=== PATIENT | female | born 2000 | race Caucasian/White ===

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

== ENCOUNTER 2023-09-13 11:44 | Emergency (ER) | payer BC, SELFPAY ==
--- NOTE | ~2023-09-13 | US_ITS ---
LEFT LOWER EXTREMITY VENOUS ULTRASOUND Ordering provider: Cytnhia Valente MD History: . calf pain, swelling . Comparison: None. FINDINGS: --COMMON FEMORAL: Patent and free of thrombus. Normal compressibility, phasic flow and augmentation. --PROXIMAL SUPERFICIAL FEMORAL: Patent and free of thrombus. Normal compressibility, phasic flow and augmentation. --DISTAL SUPERFICIAL FEMORAL: Patent and free of thrombus. Normal compressibility, phasic flow and au gmentation. --POPLITEAL: Patent and free of thrombus. Normal compressibility, phasic flow and augmentation. --POSTERIOR TIBIAL: Patent and free of thrombus. Normal compressibility, phasic flow and augmentation . IMPRESSION: Negative left lower extremity venous US. No deep vein thrombosis. Reviewed, dictated and finalized at location A.
[2023-09-13 11:47] VITALS: BP 147/91; PULSE 92; RESP 16; TEMP 37.3; O2SAT 99
--- NOTE | 2023-09-13 12:11 | ED.LOWEXIN ---
HPI - Extremity Injury (Lower) General Chief Complaint: Extremity Injury, Lower Stated Complaint: left leg pain Time Seen by Provider: 09/13/23 12:02 History of Present Illness HPI Narrative: Patient is a 22 year old female with history of HTN here with left calf pain. Patient notes that 2 days ago she started experiencing some left lateral calf pain. She does not remember doing anything to provoke this. She did contact her primary care doctor today and they plan to get her in for an appointment on Wednesday but advised that if her symptoms significantly worsen before they were able to see her she could present herself to the emergency department. She states she attempted to go to work today and had increasingly worsening pain and left lateral calf which prompted her to come to the emergency department for evaluation. She notes an area of distal mild erythema, no warmth, no swelling. She notes no associated chest pain or shortness of breath. No fever or chills. She is on Nexplanon for control. She denies any prior history of PE or DVT. Denies recent surgeries or travel. Related Data Home Medications Medication Instructions Recorded Confirmed amlodipine 5 mg tablet 5 mg PO DAILY 02/02/20 02/02/20 etonogestrel 68 mg subdermal 1 implant subdermal ONCE 02/02/20 02/02/20 implant (Nexplanon) Allergies Allergy/AdvReac Type Severity Reaction Status Date / Time Penicillins Allergy Rash Verified 09/13/23 12:00 codeine AdvReac Abdominal Verified 09/13/23 12:00 Pain Review of Systems Review of Systems: All systems reviewed & are unremarkable except as noted in HPI and below Exam Narrative: GENERAL: Well-appearing, well-nourished, and in no acute distress. HEAD: Normocephalic, atraumatic. EYES: PERRLA and EOMI. ENT: Nares clear. Mucous membranes moist. NECK: Supple. CHEST: Clear to auscultation. No respiratory distress. HEART: Regular rate and rhythm. Normal peripheral pulses. ABDOMEN: Soft, nontender, nondistended. EXTREMITIES: Normal range of motion. Mild tenderness to the left lateral proximal calf, no overlying skin changes. No swelling. Faint area of erythema just proximal to the ankle on the left. SKIN: Warm, dry, no rash. NEURO: No focal deficits. Alert and oriented x3. PSYCH: Normal mood and affect. Course Course Emergency Course: Chart review performed. Patient here for left calf pain and warmth. Triage vitals normal. Patient seen evaluated, nontoxic appearing. Vitals within normal limits, differentials include muscle strain, with likely DVT. Will do screening ultrasound. No evidence of cellulitis on exam with no constitutional infectious symptoms. Patient offered Tylenol or ibuprofen for pain, refused. Ultrasound negative for DVT. The results of pertinent diagnostic studies and exam findings were discussed. The patient?s provisional diagnosis and plan of care were discussed with the patient and present family. The patient and/or present family expressed understanding of the diagnosis and plan. The nurse was instructed to provide written instructions and appropriate follow-up information. The patient understands their need and responsibility to obtain additional follow-up as instructed. The risks of medications administered and prescribed were discussed with the patient and family present. Vital Signs Vital signs: Vital Signs Temperature 99.2 F 09/13/23 11:47 Pulse Rate 92 09/13/23 11:47 Respiratory Rate 16 09/13/23 11:47 Blood Pressure 147/91 H 09/13/23 11:47 Pulse Oximetry 99 09/13/23 11:47 Oxygen Delivery Room Air 09/13/23 11:47 Temperature 99.2 F 09/13/23 11:47 Pulse Rate 92 09/13/23 11:47 Respiratory Rate 16 09/13/23 11:47 Blood Pressure 147/91 H 09/13/23 11:47 Pulse Oximetry 99 09/13/23 11:47 Oxygen Delivery Room Air 09/13/23 11:47 MDM - Extremity Injury (Lower) Imaging Data Radiologist's impression: ITS Impressions Cynthia
== END 2023-09-13 14:10 | disposition home or self-care (01) ==
PROVIDERS: Emergency Provider Student in an Organized Health Care Education/Training Program; PCP Pediatrics
DX: M79.662 Pain in left lower leg (principal)
CPT/HCPCS: 93971; 99284